=== PATIENT | female | born 1975 | race Caucasian/White ===

== ENCOUNTER 2018-02-03 19:56 | Inpatient (IN) | payer MEDICAID ==
[~2018-02-03] VITALS: Ht 167.6 cm; Wt 76.4 kg
[~2018-02-03 19:56] MED LIST: AMBIEN5 MG PO; CELEXA40 MG PO; CEPHALEXIN500 MG PO; CYCLOBENZAPRINE10 MG PO; FLOVENT HFA12 GM; NORCO 5-325 TA1 EACH PO; PERCOCET 5-3251 EACH PO; VENTOLIN HFA18 GM
--- NOTE | 2018-02-04 00:51 | NUR ---
RECIEVED PT FROM ED AT 2355. ABLE TO MOVE SELF FROM SRETCHER TO BED. DOES C/O BACK PAIN 01/23. NO NAUSEA AT THIS TIME. UP TO BEDSICE COMMODE TO VOID 500ML YELLOW URINE THAT HAD VERY SL BROWN TINGE. ABLE TO TOAKE PO POTASSIUM WELL. GIVEN 5MG OXYCODONE PO FOR BACK PAIN . ALSO HAS CONDE. LIGHTS ARE TURNED DOWN.
--- NOTE | 2018-02-04 02:00 | NUR ---
PT NOTED TO BE WIMPERING, FOUND SHIVERING, T 99.7. GIVEN 500MG TYLENOL PO. ALSO GIVEN 4MG MORPHINE IV FOR PAIN. GIVEN 1 WARM BLANKET TO HELP DECREASE SHIVERING.
--- NOTE | 2018-02-04 02:59 | NUR ---
IS NOW ASLEEP.
--- NOTE | 2018-02-04 03:59 | NUR ---
PT HAS BEE DOZING. NOTED HR UP TO 120'S. AWAKENED FOR VS AND TEMP 102.5. NO LONGER CHILLING. UP TO BSC TO VOID. STATES FEELS ACHY ALL OVER. DR GUTIERREZ CALLED RE TEMP. ORDERS RECIEVED.
--- NOTE | 2018-02-04 05:15 | NUR ---
CONT TO HAVE BACK PAIN. GIVEN 4MG ZOPHRAN TO PREVENT NAUSEA AND 4MG MORPHINE FOR PAIN. PT STATES SHE IS HUNGRY AND HAS LORI WATER WELL. GIVEN PUDDING.
--- NOTE | 2018-02-04 07:30 | NUR ---
REPORT RECIEVED. LABS DRAWN. PATIENT SPILLED WATER IN BED, OOB TO CHAIR TO CHANGE BED LINEN. C/O INCREASED PAIN IN BACK WITH MOVEMENT.
--- NOTE | 2018-02-04 07:51 | NUR ---
MED REC COMPLETE. NO HOME MEDS.
--- NOTE | 2018-02-04 08:00 | NUR ---
TO COMMODE TO VOID 700 ML URINE. THEN TO BED W/O INCIDENT.
--- NOTE | 2018-02-04 08:10 | NUR ---
MORPHINE 4 MG IV GIVEN FOR PAIN AND OXYCODONE 5 MG PO. ASSESSMENT DONE.
--- NOTE | 2018-02-04 08:20 | NUR ---
O2 AT 2 LITERS VIA NC APPLIED SAT 86. ENC DEEP BREATHING.
--- NOTE | 2018-02-04 09:30 | NUR ---
RESTFUL AT THIS TIME.
--- NOTE | 2018-02-04 10:10 | NUR ---
RESTFUL. NO DISTESS NOTED.
--- NOTE | 2018-02-04 12:00 | NUR ---
UP TO COMMODE TO VOID 250 ML CLEAR YELLOW URINE. IS CHILLING. TEMP-101.3. BACK TO BED ASSESSMENT DONE. HR-[address] GUTIERREZ AWARE OF FEVER.
--- NOTE | 2018-02-04 12:15 | NUR ---
TYLENOL 500 MG PO GIVEN. MORPHINE 4 MG IV GIVEN FOR PAIN IN BACK RATES 03/26.
--- NOTE | 2018-02-04 13:00 | NUR ---
RESTFUL AFTER MORPHINE GIVEN.
--- NOTE | 2018-02-04 15:15 | NUR ---
TAKING REGULAR DIET.
--- NOTE | 2018-02-04 15:30 | NUR ---
TOOK ONLY FEW BITES OF SALAD. SLIGHT NAUSEA.
--- NOTE | 2018-02-04 15:44 | NUR ---
DR. GUTIERREZ AWARE OF POSITIVE BLOOD CULTURES.
--- NOTE | 2018-02-04 16:18 | NUR ---
COUGHING, INC OF URINE. CHILLING.
--- NOTE | 2018-02-04 16:21 | NUR ---
chilling, TEMP-103.1. PAIN 9/10 TYLENOL 500 MG PO AND MORPHINE 4 MG IV GIVEN FOR FEVER AND LOWER BACK PAIN.
--- NOTE | 2018-02-04 16:50 | NUR ---
OOB TO COMMODE. BED LINEN CHANGED. SPONGE BATH GIVEN. VOIDED 700 ML OF CLEAR YELLOW URINE. BACK TO BED WITH MINIMAL ASSIST.
--- NOTE | 2018-02-04 17:10 | NUR ---
C/O NAUSEA. ZOFRAN 4 MG IV GIVEN. HAS BEEN TAKING IN LARGE AMOUNT OF WATER.
--- NOTE | 2018-02-04 20:01 | NUR ---
HAS STARTED CHILLING AGAIN. T 101.2 GIVEN 400MG IBUPROPHEN AND 4MG MORPHINE IV FOR FEVER AND CHILLS. UP TO BSC TO VOID LARGE AMTS URINE. TAKING LARGE AMTS WATER.
--- NOTE | 2018-02-04 21:45 | NUR ---
PT GIVEN 5MG OXYCODONE PO FOR 7-8/10 H/A AND BACK PAIN. ICE PACK TO FOREHEAD.
--- NOTE | 2018-02-04 23:02 | NUR ---
SLEEPING AT THIS TIME.
--- NOTE | 2018-02-05 00:49 | NUR ---
IS AFEBRILE AT THIS TIME. DID SLEEP SOME AND FEELS A LITTLE BETTER. UP TO BSC TO VOID. LINEN CHANGED WAS SO DIAPHORETIC. HAD LORI EATING CHICKED SOUP EARLIER AND NOW ASKING FOR SHERBET AND THEN PUDDING WHEN LORI THE SHERBET WELL. STATES CONDE IS GONE, CONT TO HAVE BACK PAIN 01/23 AND GIVEN 500MG TYLENOL PO. HR 90'S.
--- NOTE | 2018-02-05 01:33 | NUR ---
ASLEEP AT THIS TIME.
--- NOTE | 2018-02-05 03:05 | NUR ---
CONT TO REST.
--- NOTE | 2018-02-05 04:23 | NUR ---
PT AWAKE, STATES NEEDING TO VOID AND STATES SHE FEELS LIKE SHE IS STARTING TO CHILL. UP TO BSC TO VOID 1100ML. BACK PAIN HAS IN TO 8-03/26, T 99.7. PT GIVEN 4MG MORPHINE IV AND 400MG IBUPROPHEN PO FOR PAIN AND FEVER. SATS STARTING TO DEC TO 90 WITH IN 5 MIN OF BEING GIVEN THE MORPHINE AND PT STARTING TO BE DROWSY, 02 1LNC PLACED.
--- NOTE | 2018-02-05 05:00 | NUR ---
SLEEPING. H 9-.
--- NOTE | 2018-02-05 06:26 | NUR ---
IV LAC OCCLUDING EVERY TIME PT BENDS ARM, DC'S, RESTARTED L WRIST. GIVEN ICE TEA PE REQUEST.
--- NOTE | 2018-02-05 06:37 | NUR ---
UP TO VOID AND LORI WELL. NO OTHER CHANGES.
--- NOTE | 2018-02-05 07:30 | NUR ---
REPORT RECIEVED. PATIENT IS SITTING UP EATING BREAKFAST.
--- NOTE | 2018-02-05 08:00 | NUR ---
C/O PAIN IN BACK AND UPPER RIB CAGE. MORPHINE 4 MG IV GIVEN FOR PAIN . ASSESSMENT DONE.
--- NOTE | 2018-02-05 08:15 | NUR ---
PT SLEEPING. WILL RETURN LATER.
--- NOTE | 2018-02-05 09:06 | NUR ---
C/O HEARTBURN. REQUESTING MILK.
--- NOTE | 2018-02-05 09:30 | NUR ---
MAALOX GIVEN FOR C/O HEARTBURN.
--- NOTE | 2018-02-05 09:45 | NUR ---
C/O NAUSEA AND CHILLING, ZOFRAN 4 MG IV GIVEN. WILL MONITOR TEMP. TEMP AT THIS TIME 98.4. WILL CONTINUE TO MONITOR TEMP.
--- NOTE | 2018-02-05 09:55 | NUR ---
C/O ABD PAIN AND BACK PAIN, OXYCODONE 5 MG PO GIVEN.
--- NOTE | 2018-02-05 10:00 | NUR ---
DR. GUTIERREZ HERE TO SEE PATIENT, ORDERS RECIEVED. IVF DECREASED TO 50 ML/HR.
--- NOTE | 2018-02-05 10:04 | NUR ---
PATIENT IS SELF PAY. CALLED [facility] [employer] H[employer] PLUNGER OPERATOR. SHE WILL COME SEE PATIENT REGARDING APPLYING FOR INSURANCE COVERAGE.
--- NOTE | 2018-02-05 10:35 | NUR ---
DUCCOLOX SUPP GIVEN PER ORDERS.
--- NOTE | 2018-02-05 11:30 | NUR ---
sleeping. no distress noted.
--- NOTE | 2018-02-05 12:29 | NUR ---
AWAKE. AMBULATED TO BR TO VOID 1000 ML CLEAR YELLOW URINE, VERY SMALL BM. C/O ABD DISTENTION. STATES STOMACH DOESN'T FEEL ANY BETTER. C/O HEARTBURN, HAS HICCUPS. REQUESTIMG HEARTBURN MEDICATION. BACK PAIN 8.5.
--- NOTE | 2018-02-05 13:10 | NUR ---
PT RESTING ON RIGHT SIDE IN BED. SHE WELCOMED ME IN AND MENTIONED HER PAIN WAS AT 9. GOOD, SHORT VISIT. PT REQUESTED PRAYER, AND I UPDATED RACHEL DAVE ON PT'S PAIN. WILL FOLLOW NEEDED
--- NOTE | 2018-02-05 13:15 | NUR ---
DR. GUTIERREZ AWARE OF PAIN, HEARTBURN. ORDERS RECIEVED .
--- NOTE | 2018-02-05 13:20 | NUR ---
TOOK LUNCH FAIR, GI COCKTAIL GIVEN. VISITING WITH FAMILY MEMBER. IVF INFUSING AT 50 ML/HR.
--- NOTE | 2018-02-05 14:00 | NUR ---
STATES FEELS ALITTLE BETTER AFTER TAKING GI COCKTAIL.
--- NOTE | 2018-02-05 14:35 | NUR ---
OXYCODONE 5 MG PO GIVEN FOR PAIN IN IN BACK AND ABD.
--- NOTE | 2018-02-05 14:44 | NUR ---
will be transferred TO MEDICAL FLOOR TODAY.
--- NOTE | 2018-02-05 15:30 | NUR ---
AMBULATED TO SHOWER.
--- NOTE | 2018-02-05 15:45 | NUR ---
TOLERATED SHOWER WELL. BACK TO BED W/O INCIDENT.
--- NOTE | 2018-02-05 16:00 | NUR ---
REPORT TO Felix CURRAN RN
--- NOTE | 2018-02-05 16:25 | NUR ---
TO MED-SURG VIA BED.
--- NOTE | 2018-02-05 16:25 | NUR ---
SPOKE WITH PATIENT IN ROOM. PATIENT LIVES WITH HER FOUR OLDER KIDS AGES 16-23. SHE STATES SHE LOST HER INSURANCE, BUT THAT SHE SPOKE WITH [facility] BACK HANGER AND SHE IS HELPING HER WITH THIS. SHE STATES SHE CAN GET A PCP WHEN THAT IS DONE. PATIENT DENIES ANY BARRIERS TO GOING HOME. NONE SEEN AT THIS TIME.
--- NOTE | 2018-02-05 16:53 | NUR ---
RECIEVED BEDSIDE REPORT FROM NOVA Eller R.N. PT ARRIVED TO UNIT VIA CHAIR. ALERT AND ORIENTED. PT REPORTING 8/10 HEADACHE AND FLANK\\ABD PAIN. PT REPORTS "I WOULD FEEL BETTER IF I HAD A GOOD BOWEL MOVMENT." MIRALAX AND SENNA ORDERED AND ADMINISTERED AT THIS TIME. SHADES DRAWN AND TYLENOL ADMINISTERED TO HELP WITH HEADACHE. IV INFUSING WNL. PT DRINKING LARGE AMOUNTS OF WATER. DENIES NAUSEA. CALL LIGHT WITHIN REACH.
--- NOTE | 2018-02-05 19:05 | NUR ---
PT RESTING IN BED, STATES HER PAIN IS TOLERABLE AND PO PAIN MEDICATION WAS RECENTLY ADMINISTERD. CALL LIGHT AND ICE WATER IN REACH.
--- NOTE | 2018-02-05 21:39 | NUR ---
PT RESTING IN BED, REPORTS 5/10 HEADACHE, PER ROXANN TAN PT ALSO HAS TEMP OF 100.0 SO PRN TYLENOL ADMINISTERED AT THIS TIME. PT DENIES SOB OR NAUSEA. CALL LIGHT IN REACH AND NO FURTHER CONCERNS OR REQUESTS VOICED.
--- NOTE | 2018-02-05 21:55 | NUR ---
RACHEL BUENROSTRO NOTIFIED RE TEMP.
--- NOTE | 2018-02-05 23:50 | NUR ---
PT REPORTS CHILLS AND PAIN OF 9/10 TO BILAT FLANKS WITH BURNING DURING URINATION. PT ALSO REPORTS HEADACHE THOUGH HEADACHE PAIN IS NOT SEVERE. PT DENIES NAUSEA/VOMITING, SOB OR ANY OTHER SYMPTOMS. TEMPORAL TEMP IS 103.5, PT STATES SHE JUST DRANK ICE WATER SO ORAL TEMP OF 99.1 IS NOT ACURATE. PT MEDICATED WITH PRN IBUPROFEN AND PRN OXYCODONE. DR. GUTIERREZ CONSULTED, NEW ORDER RECEIVED FOR BLOOD CULTURES X2 WITH NO LACTIC ACID.
--- NOTE | 2018-02-06 01:17 | NUR ---
PATIENT TOOK SHOWER. BED LINEN CHANGED.
--- NOTE | 2018-02-06 04:48 | NUR ---
PT RESTING IN BED, ALERT TO VOICE, DENIES PAIN,NAUSEA,SOB FEVER/CHILLS "NO, I'M FEELING BETTER" FLUIDS COMPLETED AT THIS TIME SO NEW BAG OF MAINTENANCE FLUIDS TO BE HUNG. CALL LIGHT IN REACH NO NEEDS VOICED.
--- NOTE | 2018-02-06 06:52 | NUR ---
pt had fever of 103.5 at 2352 with flank pain of 9/10 and dysuria. Per PO, blood cultures x2 were drawn with results pending. temp down to 98.4 at 0137, pt showered and denies pain, chills,sob or any other symptoms. pt slept majority of night with pain controlled with po oxycodone. maintenance fluids have continued to run and pt continues iv abx.
--- NOTE | 2018-02-06 08:30 | NUR ---
PT AFEBRILE THIS AM, PT IS "FREEZING", GAVE PT WARM BLANKETS AND INCREASED TEMP IN ROOM. PT IS ANXIOUS, DENIES SOB, TACHYPNEIA. PT HAS MINIMAL DISTRESS, GENERAL ACHINESS. ASSURED PT THAT SHE WAS NOT FEBRILE. WILL CONTINUE TO MONITOR.
--- NOTE | 2018-02-06 12:50 | NUR ---
PT IN BED, USING THE PHONE. PT HAS NO DISTRESS, PT IS NOT SHIVERING. NO CHANGE IN CONDITION. AFEBRILE THIS SHIFT. WILL CONTINUE TO MONITOR.
--- NOTE | 2018-02-06 14:57 | NUR ---
PT RESTING IN BED, NO DISTRESS. PT STATES THAT SHE FEELS BETTER, NO SHIVERING NOTED. PT HAS SOME INTERMITTENT FLANK PAIN, URINATION IS DIFFICULT AND PAIN IS NOTED AT THE BEGINNING, BUT STOPS WITH CONTINUED URINATION. GOOD OUTPUT. PT REQUESTED AN ADDITIONAL LOSENGE FOR THROAT DISCOMFORT. WILL CONTINUE TO MONITOR.
--- NOTE | 2018-02-06 18:12 | NUR ---
PT HAS BEEN IMPROVING TODAY, AND HAS REMAINED AFEBRILE FOR THE MAJORITY OF THE SHIFT. PT HAD SOME ANIXETY THIS AM, WHICH IS RESOLVING. PT IS PLEASANT, VOIDING WELL, DENIES SOB. PT IS NO LONGER FEELING CHILLED, AND TOLERATING FOOD WELL. LOWER LEFT FLANK PAIN IS REPORTED THROUGHOUT SHIFT, AND PT HAS HAD PRN PAIN MANAGEMENT. PT GENERAL ACHINESS IS RESOLVING.
--- NOTE | 2018-02-06 19:00 | NUR ---
Report received from RACHEL Lopez. Pt resting supine in bed call light in reach no needs voiced at this time.
--- NOTE | 2018-02-06 20:12 | NUR ---
PATIENT CAME TO THE NURSE'S STATION WITH FAMILY SENDING OUT, PATIENT HANDED HER BLIZZARD TO BE PUT TO FREEZER. PUT NAME ON IT.
--- NOTE | 2018-02-06 20:45 | NUR ---
ROUNDED CHARGE. RELOCATION SPECIALIST IN THE ROOM. PATIENT IS RESTING IN BED. PATIENT DENIES ANY COMMENTS, QUESTIONS, OR CONCERNS.
--- NOTE | 2018-02-06 23:17 | NUR ---
CHANGED BED LINEN. CHANGED GOWN.
--- NOTE | 2018-02-07 | NUR ---
PT SITTING UP IN BED TEXTING ON CELL PHONE. PT APPEARS TO BE IN NO DISTRESS. PT REPORTED HAVING NO LARGE BM IN PAST 7 DAYS. PT DOES REPORT MULTIPLE VERY SMALL FORMED BM'S TODAY BUT STILL FEELS CONTSTIPATED AND BT'S ACTIVE. PT DENIES NASUEA OR VOMITING. PT WAS UP AMBULATING IN HALLS DOING MULTIPLE LAPS IN RAY WITH STEADY GAIT. NIO MAG CITRATE TO BE ORDERED FOR CONSTIPATION.
--- NOTE | 2018-02-07 01:00 | NUR ---
PT BACK TO ROOM FROM AMBULATING IN HALLS STATES "I DID 5 LAPS AROUND THE HALLS". PT STATES SHE IS STILL UNABLE TO HAVE A BM SO MAG CITRATE ADMINISTERED PER NIO. "I SURE HOPE THIS WORKS BECAUSE I FEEL CONSTIPATED". CALL LIGHT IN REACH NO FURTHER CONCERNS OR REQUESTS VOICED.
--- NOTE | 2018-02-07 05:02 | NUR ---
Pt resting supine in bed RR18, call light and ice water in reach. pt appears to be sleeping comfortably.
--- NOTE | 2018-02-07 05:31 | NUR ---
PT UP AMBULATING HALLS EARLY IN SHIFT TOLORATING 5 LAPPS AROUND RAY. PT REPORTED SOME CONSTIPATION FOR PAST 7 DAYS, WITH ONLY SOME SMALL FORMED BM'S SINCE ADMISSION SO NIO MAG CITRATE ORDERED FOR CONSTIPATION. NO BM OF YET POST ADMINISTRATION. PT SLEPT WELL WITH PAIN WELL CONTROLLED WITH PRN PERCOCET. PT AMBULATES INDEPENDENTLY WITH STEADY GAIT. NO REPORTS OF NAUSEA. BT'S ACTIVE. PT DID HAVE FEVER OF 100.1 THAT WAS REDUCED TO 99.1 WITH 500MG PO TYLONOL. 20 GA IV PATENT TO LEFT WRIST.
--- NOTE | 2018-02-07 09:11 | NUR ---
PT COMPLAINING OF ABDOMINAL CRAMPING THIS MORNING, ONE SMALL BM NOTED. PT REQUESTED PRN PAIN MANAGEMENT, GAVE OXYCODONE PER ORDERS, FOR L FLANK PAIN. NO DISTRESS, AFEBRILE. PT HAS CHRONIC MIGRAINES, ROOM LEFT DARK AT PT REQUEST. GAVE WARM PRUNE JUICE FOR DISCOMFORT.
[2018-02-07] MEDS ORDERED: NICOTINE PATCH1 EAC1 TD (09:59)
[2018-02-07] MEDS ORDERED: CEPHALEXIN500 MG PO (09:59)
[2018-02-07] MEDS ORDERED: OXYCODONE HCL5 MG PO (10:00)
== END 2018-02-07 12:05 | disposition home or self-care (01) | DRG 872 ==
LOC: ED 19:56 → CCU 23:10 → MS 02-05 16:25
PROVIDERS: ADMIT Internal Medicine
DX: A41.51 Sepsis due to Escherichia coli [E. coli] (principal); N10 Acute pyelonephritis; N92.0 Excessive and frequent menstruation with regular cycle; D50.9 Iron deficiency anemia, unspecified; K59.00 Constipation, unspecified
CPT/HCPCS: 36415; 74176; 80048; 80053; 81001; 82607; 82728; 82746; 83540; 83605; 83735; 84466; 84703; 85025; 85045; 87040; 87077; 87088; 87186; 96361; 96374; 96375; 99285; 99406; J0696; J1650; J1885; J2270; J2405; J2550; J3475; J7030; J7120

== ENCOUNTER 2018-09-03 10:59 | Emergency (ER) | payer MEDICAID ==
[~2018-09-03] VITALS: Ht 167.6 cm; Wt 68.0 kg
[~2018-09-03 10:59] MED LIST changes: +CEFUROXIME500 MG PO; +NICOTINE PATCH1 EAC1 TD; +OXYCODONE HCL5 MG PO; +TYLENOL WITH C1 EACH PO; +ZOFRAN4 MG PO
[2018-09-03] MEDS ORDERED: ONDANSETRON ODT8 MG PO (12:00)
== END 2018-09-03 12:22 | disposition home or self-care (01) ==
LOC: ED 10:59
DX: S06.0X0A Concussion without loss of consciousness, initial encounter (principal); W10.9XXA Fall (on) (from) unspecified stairs and steps, initial encounter; F17.200 Nicotine dependence, unspecified, uncomplicated; Z88.8 Allergy status to other drugs, medicaments and biological substances; Z88.5 Allergy status to narcotic agent
CPT/HCPCS: 99283

== ENCOUNTER 2019-05-16 12:29 | Emergency (ER) | payer OTHER ==
[~2019-05-16] VITALS: Ht 167.6 cm; Wt 68.0 kg
[~2019-05-16 12:29] MED LIST changes: +ONDANSETRON ODT8 MG PO
[2019-05-16] MEDS ORDERED: ONDANSETRON ODT8 MG PO (14:08)
== END 2019-05-16 14:20 | disposition home or self-care (01) ==
LOC: ED 12:29
DX: K52.9 Noninfective gastroenteritis and colitis, unspecified (principal); F17.200 Nicotine dependence, unspecified, uncomplicated; Z88.5 Allergy status to narcotic agent; Z88.8 Allergy status to other drugs, medicaments and biological substances
CPT/HCPCS: 80053; 81001; 83690; 84703; 85025; 96361; 96374; 96376; 99284-25; J2405; J7030

== ENCOUNTER 2020-03-09 16:18 | Emergency (ER) | payer OTHER ==
[~2020-03-09] VITALS: Ht 167.6 cm; Wt 68.0 kg
--- OUTSIDE RECORDS SUMMARY | 2020-03-09 16:22 | XMS ---
PreManage Notification: CHUNG HUIZAR Security Pressure Tester Events No recent Security Events currently on file CRITERIA MET - History of Sepsis Dx CARE PROVIDERS There are no care providers on record at this time. Eric has no Care Guidelines for this patient. [place] VISIT COUNT (12 MO.) 2 [facility] [place] TOTAL 2 NOTE: Visits indicate total known visits. ED/UCC VISIT TRACKING (12 MO.) 03/09/2020 16:19 [facility] [place] TYPE: Emergency COMPLAINT: - BLOOD IN URINE 05/16/2019 12:29 [facility] [place] TYPE: Emergency COMPLAINT: - POSSIBLE KIDNEY INFECTION DIAGNOSES: - Allergy status to other drugs, medicaments and biological sub - Diarrhea, unspecified - Nicotine dependence, unspecified, uncomplicated - Noninfective gastroenteritis and colitis, unspecified - Allergy status to narcotic agent status INPATIENT VISIT TRACKING (12 MO.) No inpatient visits to display in this time frame [email or web address]
== END 2020-03-09 16:51 | disposition home or self-care (01) ==
LOC: ED 16:18
DX: R30.0 Dysuria (principal); R35.0 Frequency of micturition

== ENCOUNTER 2021-01-05 10:06 | Emergency (ER) | payer OTHER ==
[~2021-01-05] VITALS: Ht 167.6 cm; Wt 63.5 kg
[2021-01-05] MEDS ORDERED: CEPHALEXIN500 M1 PO (12:44)
== END 2021-01-05 13:09 | disposition home or self-care (01) ==
LOC: ED 10:06
DX: N39.0 Urinary tract infection, site not specified (principal); J45.909 Unspecified asthma, uncomplicated; F17.200 Nicotine dependence, unspecified, uncomplicated; Z88.8 Allergy status to other drugs, medicaments and biological substances; Z88.5 Allergy status to narcotic agent
CPT/HCPCS: 81001; 87077; 87088; 87186; 99284

== ENCOUNTER 2025-03-23 16:41 | Emergency (ER) | payer OTHER ==
[~2025-03-23] VITALS: Ht 167.6 cm; Wt 64.3 kg
[~2025-03-23 16:41] MED LIST changes: +CEPHALEXIN500 M1 PO; +DOXYCYCLINE HY100 MG PO; +METRONIDAZOLE500 MG PO
[2025-03-23] MEDS ORDERED: METHYLPREDNISOLO4 M1 (16:59)
[2025-03-23] MEDS ORDERED: OMEPRAZOLE20 MG (16:59)
[2025-03-23] MEDS ORDERED: LEXAPRO20 MG (16:59)
[2025-03-23] MEDS ORDERED: HYDROXYZINE HCL25 MG (16:59)
[2025-03-23 17:16] LABS: BASOPHILS 0.8 % (0.1-1.2); EOSINOPHILS 3.1 % (0.7-5.8); LYMPHOCYTES 35.6 % (19.3-51.7); MCH 23.0 PG (25.6-32.2); MCHC 29.6 g/dL (32.2-35.5); MCV 77.8 fL (79.4-94.8); MONOCYTES 9.3 % (4.7-12.5); NEUTROPHILS 51.1 % (34.0-71.1); RBC 4.82 M/uL (3.93-5.22)
[2025-03-23 17:26] LABS: ALT (SGPT) 42.0 U/L (14-59); AST (SGOT) 29.0 U/L (15-37); GLOMERULAR FILTRATION RATE,EST 94.0 mL/min (>60); PROTEIN, TOTAL 7.0 g/dL (6.4-8.2); UREA NITROGEN 13.0 mg/dL (7-18)
[2025-03-23 17:27] LABS: BLOOD/HGB, URINE NEGATIVE (Negative); KETONE, URINE NEGATIVE (Negative); LEUK ESTERASE, URINE TRACE (negative); NITRITE, URINE POSITIVE (negative)
[2025-03-23 17:32] LABS: BACTERIA, URINE 4+ /hpf (negative); CASTS, URINE NONE SEEN \\lpf; CRYSTALS, URINE NONE SEEN (0-1+); EPITHELIAL CELLS, URINE SQUAMOUS 1+ /lpf (0-1+); REFLEX CULTURE, URINE Yes (No)
[2025-03-23] MEDS ORDERED: CEPHALEXIN MONOHYDRATE 500 MG CAP PO ONE (17:45)
[2025-03-23 17:47] VITALS: BP 137/96
[2025-03-23] MEDS ORDERED: CEPHALEXIN500 MG PO (17:49)
== END 2025-03-23 17:54 | disposition home or self-care (01) ==
LOC: ED 16:41
PROVIDERS: Emergency Medicine
DX: K62.5 Hemorrhage of anus and rectum (principal); F17.200 Nicotine dependence, unspecified, uncomplicated; Z79.899 Other long term (current) drug therapy; Z88.6 Allergy status to analgesic agent; Z88.5 Allergy status to narcotic agent
CPT/HCPCS: 36415; 80053; 81001; 85025; 87077; 87088; 87186; 99283; A9270

== ENCOUNTER 2025-05-07 23:50 | Observation (INO) | payer OTHER ==
[~2025-05-07] VITALS: Ht 167.6 cm; Wt 59.9 kg
--- OUTSIDE RECORDS SUMMARY | ~2025-05-07 | XMS | Continuity of Care Document ---
Demographics + + + | Address | [address] | | | [place] [address] | + + + | Preferred Language | Unknown | + + + | Marital Status | | + + + | Nondenominational Affiliation | Unknown | + + + | Race | White | + + + | Ethnic Group | Not or | + + + Author + + + | Author | [place] | + + + | Organization | [facility] | + + + | Address | [address] | | | [place] [address] | + + + | Phone | | + + + Care Team Providers + + + + | Care Business Database Analyst Name | Role | Phone | + + + + Unavailable | Unavailable | + + + + Unavailable | Unavailable | + + + + Allergies No information. Encounters No information. Functional Status No information. Immunizations No information. Medications + + + + | date | description | facility | + + + + | (no date) | OMEPRAZOLE | [facility] | | | | [facility] | + + + + | (no date) | CEPHALEXIN | [facility] | | | | [facility] | + + + + | 2025-03-23 00:00 | CEPHALEXIN | [facility] | | | | [facility] | + + + + | (no date) | ESCITALOPRAM OXALATE | [facility] | | | | [facility] | + + + + | (no date) | METHYLPREDNISOLONE | [facility] | | | | [facility] | + + + + | (no date) | hydrOXYzine HCL | [facility] | | | | [facility] | + + + + Problems + + + + | date | description | facility | + + + + | 2025-03-23 00:00 | Rectal hemorrhage | [facility] | | | | [facility] | + + + + Procedures No information. Results/Labs +--------+--------+ +---------+--------+---------+ | test | date | facility | value | unit | notes | +--------+--------+ +---------+--------+---------+ + + | Result panel 1 | + + + + + +--------+ + + | WBC # Bld | 2025-03-23 | | 7.42 | (missing) | (missing) | | Auto | 17:00:07 | [facility] | | | | + + + +--------+ + + + + | Result panel 2 | + + + + + +--------+ + + | Lymphocytes | 2025-03-23 | | 35.6 | (missing) | (missing) | | NFr Bld | 17:00:07 | [facility] | | | | | Auto | [facility] | | | | + + + +--------+ + + + + | Result panel 3 | + + + + + +-------+ + + | Monocytes | 2025-03-23 | | 9.3 | (missing) | (missing) | | NFr Bld Auto | 17:00:07 | [facility] | | | | + + + +-------+ + + + + | Result panel 4 | + + + + + +-------+ + + | Eosinophil | 2025-03-23 | | 3.1 | (missing) | (missing) | | NFr Bld Auto | 17:00:07 | [facility] | | | | + + + +-------+ + + + + | Result panel 5 | + + + + + +-------+ + + | Basophils | 2025-03-23 | | 0.8 | (missing) | (missing) | | NFr Bld Auto | 17:00:07 | [facility] | | | | + + + +-------+ + + + + | Result panel 6 | + + + + + +--------+ + + | RBC # Bld | 2025-03-23 | | 4.82 | (missing) | (missing) | | Auto | 17:00:07 | [facility] | | | | + + + +--------+ + + + + | Result panel 7 | + + + + + +--------+ + + | Hgb | 2025-03-23 | | 11.1 | (missing) | (missing) | | Bld-mCnc | 17:00:07 | [facility] | | | | + + + +--------+ + + + + | Result panel 8 | + + + + + +-------+---------+ + | Glucose | 2025-03-23 | | 109 | mg/dL | (missing) | | SerPl-mCnc | 17:00:07 | [facility] | | | | + + + +-------+---------+ + + + | Result panel 9 | + + + + + +------+---------+ + | BUN | 2025-03-23 | | 13 | mg/dL | (missing) | | SerPl-mCnc | 17:00:07 | [facility] | | | | + + + +------+---------+ + + + | Result panel 10 | + + + + + +--------+---------+ + | Creat | 2025-03-23 | | 0.78 | mg/dL | (missing) | | SerPl-mCnc | 17:00:07 | [facility] | | | | + + + +--------+---------+ + + + | Result panel 11 | + + + + + +------+ + + | eGFRcr | 2025-03-23 | | 94 | (missing) | (missing) | | SerPlBld | 17:00:07 | [facility] | | | | | CKD-EPI 2020 | [facility] | | | | + + + +------+ + + + + | Result panel 12 | + + + + + +---------+ + + | BUN/Creat | 2025-03-23 | | 16.66 | (missing) | (missing) | | SerPl | 17:00:07 | [facility] | | | | + + + +---------+ + + + + | Result panel 13 | + + + + + +-------+ + + | Sodium | 2025-03-23 | | 139 | (missing) | (missing) | | SerPl-sCnc | 17:: | [facility] | | [facility] | | | | + + + +-------+ + + + + | Result panel 14 | + + + + + +--------+ + + | Hct VFr.DF | 2025-03-23 | | 37.5 | (missing) | (missing) | | Bld Auto | 17:: | [facility] | | | | + + + +--------+ + + + + | Result panel 15 | + + + + + +-------+ + + | Potassium | 2025-03-23 | | 4.0 | (missing) | (missing) | | SerPl-sCnc | 17:00:07 | [facility] | | | | + + + +-------+ + + + + | Result panel 16 | + + + + + +-------+ + + | Chloride | 2025-03-23 | | 104 | (missing) | (missing) | | SerPl-sCnc | 17:00:07 | [facility] | | | | + + + +-------+ + + + + | Result panel 17 | + + + + + +------+ + + | CO2 | 2025-03-23 | | 28 | (missing) | (missing) | | SerPl-sCnc | 17::07 | [facility] | | | | + + + +------+ + + + + | Result panel 18 | + + + + + +--------+ + + | Anion Gap | 2025-03-23 | | 11.0 | (missing) | (missing) | | SerPl | 17:00:07 | [facility] | | | | | Calculated.4 | [facility] Ions-sCnc | [facility] | | | | + + + +--------+ + + + + | Result panel 19 | + + + + + +-------+---------+ + | Calcium | 2025-03-23 | | 9.2 | mg/dL | (missing) | | Angelica-Jacques | 17:00:07 | [facility] | | | | + + + +-------+---------+ + + + | Result panel 20 | + + + + + +-------+ + + | Prot | 2025-03-23 | | 7.0 | (missing) | (missing) | | SerPl-mCnc | 17:00:07 | [facility] | | | | + + + +-------+ + + + + | Result panel 21 | + + + + + +-------+ + + | Albumin | 2025-03-23 | | 3.4 | (missing) | (missing) | | SerPl-mCnc | 17:00:07 | [facility] | | | | + + + +-------+ + + + + | Result panel 22 | + + + + + +-------+ + + | Globulin | 2025-03-23 | | 3.6 | (missing) | (missing) | | Ser-mCnc | 17:00:07 | [facility] | | | | + + + +-------+ + + + + | Result panel 23 | + + + + + +--------+ + + | | 2025-03-23 | | 0.94 | (missing) | (missing) | | Albumin/Glob | 17:00:07 | [facility] | | | | | SerPl | [facility] | | | | + + + +--------+ + + + + | Result panel 24 | + + + + + +-------+---------+ + | Bilirub | 2025-03-23 | | 0.4 | mg/dL | (missing) | | SerPl-mCnc | 17:00:07 | [facility] | | | | + + + +-------+---------+ + + + | Result panel 25 | + + + + + +--------+ + + | RBC Auto | 2025-03-23 | | 77.8 | (missing) | (missing) | | | 17:00:07 | [facility] | | | | + + + +--------+ + + + + | Result panel 26 | + + + + + +------+ + + | AST | 2025-03-23 | | 29 | (missing) | (missing) | | SerPl-cCnc | 17:00:07 | [facility] | | | | + + + +------+ + + + + | Result panel 27 | + + + + + +------+ + + | ALT | 2025-03-23 | | 42 | (missing) | (missing) | | SerPl-cCnc | 17:00:07 | [facility] | | | | + + + +------+ + + + + | Result panel 28 | + + + + + +-------+ + + | ALP | 2025-03-23 | | 127 | (missing) | (missing) | | [facility] | 17:00:07 | [facility] | | | | + + + +-------+ + + + + | Result panel 29 | + + + + + +--------+ + + | MCH RBC Qn | 2025-03-23 | | 23.0 | (missing) | (missing) | | Auto | 17:00:07 | [facility] | | | | + + + +--------+ + + + + | Result panel 30 | + + + + + +--------+ + + | MCHC RBC | 2025-03-23 | | 29.6 | (missing) | (missing) | | Auto-EntMCnc | 17:00:07 | [facility] | | | | + + + +--------+ + + + + | Result panel 31 | + + + + + +-------+ + + | Platelet # | 2025-03-23 | | 278 | (missing) | (missing) | | Bld Auto | 17:00:07 | [facility] | | | | + + + +-------+ + + + + | Result panel 32 | + + + + + +--------+ + + | Neutrophils | 2025-03-23 | | 51.1 | (missing) | (missing) | | NFr Bld | 17:00:07 | [facility] | | | | | Auto | [facility] | | | | + + + +--------+ + + + + | Result panel 33 | + + + + + + + + + | Color Ur | 2025-03-23 | | YELLOW | (missing) | (missing) | | Auto | 17:20:07 | [facility] | | | | + + + + + + + + + | Result panel 34 | + + + + + +---------+ + + | Character | 2025-03-23 | | CLEAR | (missing) | (missing) | | Ur | 17:20:07 | [facility] | | | | + + + +---------+ + + + + | Result panel 35 | + + + + + + + + + | Glucose Ur | 2025-03-23 | | NEGATIVE | (missing) | (missing) | | Ql Strip | 17:20:07 | [facility] | | | | + + + + + + + + + | Result panel 36 | + + + + + + + + + | Bilivonneub Ur | 2025-03-23 | | NEGATIVE | (missing) | (missing) | | Ql Strip | 17:20:07 | [facility] | | | | + + + + + + + + + | Result panel 37 | + + + + + + + + + | Ketoneamara Ur | 2025-03-23 | | NEGATIVE | (missing) | (missing) | | Ql Strip | 17:20:07 | [facility] | | | | + + + + + + + + + | Result panel 38 | + + + + + +---------+ + + | Sp Gr Ur | 2025-03-23 | | 1.010 | (missing) | (missing) | | Strip | 17:20:07 | [facility] | | | | + + + +---------+ + + + + | Result panel 39 | + + + + + + + + + | Hgb Ur Ql | 2025-03-23 | | NEGATIVE | (missing) | (missing) | | Strip | 17:20:07 | [facility] | | | | + + + + + + + + + | Result panel 40 | + + + + + +-------+ + + | pH Ur Strip | 2025-03-23 | | 6.0 | (missing) | (missing) | | | 17:20:07 | [facility] | | | | + + + +-------+ + + + + | Result panel 41 | + + + + + + + + + | Prot Ur | 2025-03-23 | | NEGATIVE | (missing) | (missing) | | Strip-mCnc | 17:20:07 | [facility] | | | | + + + + + + + + + | Result panel 42 | + + + + + +-------+ + + | | 2025-03-23 | | 1.0 | (missing) | (missing) | | Urobilinogen | 17:20:07 | [facility] | | | | | Ur | [facility] Strip-mCnc | [facility] | | | | + + + +-------+ + + + + | Result panel 43 | + + + + + + + + + | Nitrite Ur | 2025-03-23 | | POSITIVE | (missing) | (missing) | | Ql Strip | 17:20:07 | [facility] | | | | + + + + + + + + + | Result panel 44 | + + + + + +---------+ + + | Leukocyte | 2025-03-23 | | TRACE | (missing) | (missing) | | esterase Ur | 17:20:07 | [facility] | | | | | Ql Strip | [facility] | | | | + + + +---------+ + + + + | Result panel 45 | + + + + + +-------+ + + | RBC #/area | 2025-03-23 | | 0-1 | (missing) | (missing) | | UrnS HPF | 17:20:07 | [facility] | | | | + + + +-------+ + + + + | Result panel 46 | + + + + + +---------+ + + | WBC #/area | 2025-03-23 | | 12-20 | (missing) | (missing) | | UrnS HPF | 17:20:07 | [facility] | | | | + + + +---------+ + + + + | Result panel 47 | + + + + + + + + + | Epi Cells | 2025-03-23 | | SQUAMOUS 1+ | (missing) | (missing) | | #/area UrnS | 17:20:07 | [facility] | | | | | HPF | [facility] | | | | + + + + + + + + + | Result panel 48 | + + + + + + + + + | Crystals | 2025-03-23 | | NONE SEEN | (missing) | (missing) | | UrnS Micro | 17:20:07 | [facility] | [facility] | | | | + + + + + + + + + | Result panel 49 | + + + + + +------+ + + | Bacteria | 2025-03-23 | | 4+ | (missing) | (missing) | | #/area UrnS | 17:20:07 | [facility] | | | | | HPF | [facility] | | | | + + + +------+ + + + + | Result panel 50 | + + + + + + + + + | Casts | 2025-03-23 | | NONE SEEN | (missing) | (missing) | | #/area UrnS | 17:20:07 | [facility] | | | | | LPF | [facility] | | | | + + + + + + + + + | Result panel 51 | + + + + + +-------+ + + | Bacteria Ur | 2025-03-23 | | Yes | (missing) | (missing) | | Cult | 17:20:07 | [facility] | [facility] | | | | + + + +-------+ + + + + | Result panel 52 | + + + + + + + + + | Urn Spec | 2025-03-23 | | CLEAN CATCH | (missing) | (missing) | | Collect Meth | 17:20:07 | [facility] | | | | | Ur | [facility] | | | | + + + + + + + Social History +--------+ + + | date | description | facility | +--------+ + + Vital Signs + + + +---------+ | date | measurement | value | units | + + + +---------+ | 2025-03-23 00:00 | BMI | 22.9 | kg/m2 | + + + +---------+ | 2025-03-23 00:00 | BP_diastolic | 96 | mmHg | + + + +---------+ | 2025-03-23 00:00 | BP_systolic | 137 | mmHg | + + + +---------+ | 2025-03-23 00:00 | heart_rate | 84 | /min | + + + +---------+ | 2025-03-23 00:00 | height_metric | 167.64 | cm | + + + +---------+ | 2025-03-23 00:00 | height_standard | 66 | in | + + + +---------+ | 2025-03-23 00:00 | o2_saturation | 99 | % | + + + +---------+ | 2025-03-23 00:00 | respiration_rate | 16 | /min | + + + +---------+ | 2025-03-23 00:00 | | 98.5 | F | | | temperature_standar | | | | | d | | | + + + +---------+ | 2025-03-23 00:00 | weight_metric | 64.3 | kg | + + + +---------+ | 2025-03-23 00:00 | weight_standard | 141.756 | lb | + + + +---------+"
--- OUTSIDE RECORDS SUMMARY | ~2025-05-07 | XMS | Continuity of Care Document ---
Demographics + + + | Address | [address] | | | [place] [address] | + + + | Preferred Language | Unknown | + + + | Marital Status | | + + + | Anabaptist Affiliation | Unknown | + + + | Race | White | + + + | Ethnic Group | Not or | + + + Author + + + | Author | [facility] | + + + | Organization | [facility] | + + + | Address | [address] | | | [place] [address] | + + + | Phone | | + + + Care Team Providers + + + + | Care Rn Admission Name | Role | Phone | + + + + Unavailable | Unavailable | + + + + Unavailable | Unavailable | + + + + Allergies No information. Encounters No information. Functional Status No information. Immunizations No information. Medications + + + + | date | description | facility | + + + + | (no date) | OMEPRAZOLE | [facility] | | | | [facility] | + + + + | (no date) | CEPHALEXIN | [facility] | | | | [facility] | + + + + | 2025-03-23 00:00 | CEPHALEXIN | [facility] | | | | [facility] | + + + + | (no date) | ESCITALOPRAM OXALATE | [facility] | | | | [facility] | + + + + | (no date) | METHYLPREDNISOLONE | [facility] | | | | [facility] | + + + + | (no date) | hydrOXYzine HCL | [facility] | | | | [facility] | + + + + Problems + + + + | date | description | facility | + + + + | 2025-03-23 00:00 | Rectal hemorrhage | [facility] | | | | [facility] | + + + + Procedures [...] 127 | (missing) | (missing) | | [facility] | 17:00:07 | [facility] | [...]
[~2025-05-07 23:50] MED LIST changes: +HYDROXYZINE HCL25 MG PO; +LEXAPRO20 MG PO; +METHYLPREDNISOLO4 M1; +OMEPRAZOLE20 MG PO
[2025-05-08] VITALS (12 sets, daily range): BP systolic 102–133; BP diastolic 64–85
[2025-05-08] MEDS ORDERED: HYDROmorphone HCL 1 MG/ML SYR IV PRN ×3 (00:30→10:15)
[2025-05-08 00:39] LABS: BASOPHILS 1.0 % (0.1-1.2); EOSINOPHILS 2.9 % (0.7-5.8); LYMPHOCYTES 36.9 % (19.3-51.7); MCH 23.5 PG (25.6-32.2); MCHC 30.8 g/dL (32.2-35.5); MCV 76.3 fL (79.4-94.8); MONOCYTES 8.4 % (4.7-12.5); NEUTROPHILS 50.7 % (34.0-71.1); RBC 4.89 M/uL (3.93-5.22)
[2025-05-08 01:11] LABS: ALT (SGPT) 37.0 U/L (14-59); AST (SGOT) 21.0 U/L (15-37); GLOMERULAR FILTRATION RATE,EST 92.0 mL/min (>60); PROTEIN, TOTAL 6.8 g/dL (6.4-8.2); UREA NITROGEN 18.0 mg/dL (7-18)
[2025-05-08] MEDS ORDERED: CEFAZOLIN SODIUM 2 GM in SODIUM CHLORIDE 0.9% 100 ML IV ONE ×2 (02:00→10:00)
[2025-05-08] MEDS ORDERED: FAMOTIDINE 20 MG/ 2 ML VIAL IV ONE (02:15)
[2025-05-08 03:04] LABS: BLOOD/HGB, URINE NEGATIVE (Negative); KETONE, URINE NEGATIVE (Negative); LEUK ESTERASE, URINE NEGATIVE (negative); NITRITE, URINE NEGATIVE (negative)
[2025-05-08] MEDS ORDERED: LACTATED RINGER'S 1,000 ML IV SCH ×2 (03:15→10:15)
--- NOTE | 2025-05-08 03:15 | NUR ---
PT IN FROM ED VIA WHEELCHAIR, REPORT RECEIVED FROM RACHEL JONES. PT ALERT AND ORIENTED, AMBULATORY, VSS, ON RA. IV ACCESS INTACT. IV FLUID STARTED ORDERED. NPO INSTRUCTED TO PT. PT C/O 9/ ABDOMINAL PAIN, PRN PAIN MEDICATION GIVEN ORDERED. DENIES FURTHER NEEDS. ENCOURAGED PT TO CALL IF SHE NEEDS TO USE THE BATHROOM. CALL LIGHT IN REACH.
[2025-05-08] MEDS ORDERED: VENTOLIN HFA18 GM INH (03:22)
[2025-05-08] MEDS ORDERED: CEFAZOLIN SODIUM 2 GM in SODIUM CHLORIDE 0.9% 100 ML IV SCH ×2 (06:00→14:00)
--- NOTE | 2025-05-08 06:00 | NUR ---
WATER QUALITY MANAGER OBTAINED VITALS AND OUTPUT. PT STATES NO NEEDS AT THIS TIME. CALL LIGHT WITHIN REACH.
--- NOTE | 2025-05-08 06:36 | NUR ---
PT RESTING IN BED. RESPIRATIONS EVEN AND UNLABORED. REPORTED ABDOMEN LITHOGRAPH PRESS OPERATOR TINWARE BUT SHE IS STILL OKAY AT THE MOMEN. DENIES NEEDS AT THE MOMENT. CALL LIGHT IN REACH.
--- NOTE | 2025-05-08 07:29 | NUR ---
RECEIVED REPORT FROM RACHEL CRAWFORD. PT SITTING UP IN BED REPORTING NO NEEDS, CALL LIGHT IN REACH, WHITEBOARD UPDATED.
--- NOTE | 2025-05-08 08:45 | NUR ---
PATIENT IS IN BED AT THIS TIME, GAMMA RAY OPERATOR CHARTED VITALS AND I&O'S, GOT FRESH LINENS, GOWN AND WIPE DOWN WIPES. OFFERED PATIENT A WASH CLOTH AND TOOTH BRUSH FOR AM CARE, PATIENT REFUSED. CALL LIGHT WITH IN REACH AND NOTHING ELSE NEEDED AT THIS TIME.
--- NOTE | 2025-05-08 08:47 | NUR ---
IN ROOM ROUNDING ON PATIENT. PATIENT REPORTS 9/10 PAIN, BUT DENIES FURTHER NEEDS. CALL LIGHT AND PERSONAL BELONGINGS ARE WITHIN REACH. ROXANN MARINELLI AT BEDSIDE ASSISTING PATIENT.
--- NOTE | 2025-05-08 09:00 | NUR ---
Spoke with Olya. She states she works at [employer] and resides in her [place] as she is homeless. She has a propane bottle with a burner and is able to cook her own food. She denies financial issues. She has been on the waiting list for section 8 housing for a year. She states there are issues as her son did not pay the rent money and she owes several thousand dollars for rent. Her daughter lives in town. Olya is not able to live with her, but could go home to her house [place] [address] for a couple of days. Pt denies other needs, she [facility] but now works [employer] and is not able to be there for the 5 pm check in. She denies safety of financial concerns. She is waiting on low income housing.
--- NOTE | 2025-05-08 09:02 | NUR ---
PT REPORTING PAIN IN ABDOMEN, DILAUDID GIVEN PER ORDER. STATES NO OTHER NEEDS AT THIS TIME, CASE MANAGEMENT AT BEDSIDE SPEAKING W/PT. CALL LIGHT IN REACH.
[2025-05-08] MEDS ORDERED: KETOROLAC TROMETHAMINE 30 MG/ML VIAL IV PRN (10:15)
[2025-05-08] MEDS ORDERED: FAMOTIDINE 20 MG/ 2 ML VIAL IV SCH (10:15)
--- NOTE | 2025-05-08 10:23 | NUR ---
DR PARK AT BEDSIDE EDUCATING PATIENT ON PROCEDURE. MD STATES TO GIVE THE 1000 DOSE OF ANCEF DUE TO PATIENT GOING LATER TODAY FOR PROCEDURE. MD ALSO WITH VERBAL ORDER FOR PATIENT OKAY TO HAVE "A FEW ICE CHIPS".
[2025-05-08] MEDS ORDERED: IRON325 M1 PO (11:38)
--- NOTE | 2025-05-08 11:39 | NUR ---
MED REC COMPLETE
--- NOTE | 2025-05-08 11:43 | NUR ---
PT IN BATHROOM REQUESTING A WASHCLOTH TO WIPE FACE, GIVEN. NO OTHER NEEDS AT THIS ITME.
--- NOTE | 2025-05-08 12:19 | NUR ---
PATIENT IN CHAIR, GOT HER CHG WIPE DOWN, NEW GOWN AND LINENS, CALL LIGHT WITH IN REACH AND NOTHING ELSE NEEDED AT THIS TIME.
[2025-05-08] MEDS ORDERED: ACETAMINOPHEN 1,000 MG/100 ML VIAL ONE (12:51)
[2025-05-08] MEDS ORDERED: SEVOFLURANE 250 ML BTL ONE (12:51)
[2025-05-08] MEDS ORDERED: LIDOCAINE HCL 2% 5 ML SDV ONE (12:52)
[2025-05-08] MEDS ORDERED: DEXAMETHASONE SOD PHOS 4 MG/ML VIAL ONE (12:52)
[2025-05-08] MEDS ORDERED: SUGAMMADEX SODIUM 200 MG/2 ML ML ONE (12:52)
[2025-05-08] MEDS ORDERED: ROCURONIUM BROMIDE 50 MG/5 ML SYR ONE (12:52)
[2025-05-08] MEDS ORDERED: KETOROLAC TROMETHAMINE 30 MG/ML VIAL ONE (12:52)
[2025-05-08] MEDS ORDERED: SUCCINYLCHOLINE IN 0.9% NACL 200 MG/10 ML SYRINGE ONE (12:52)
[2025-05-08] MEDS ORDERED: fentaNYL citrate 100 MCG/2 ML VIAL ONE (12:53)
[2025-05-08] MEDS ORDERED: MIDAZOLAM HCL 2 MG/2 ML VIAL ONE (12:53)
[2025-05-08] MEDS ORDERED: SEVOFLURANE 250 ML BTL INH ONE (13:00)
--- NOTE | 2025-05-08 13:24 | NUR ---
UR CLINICAL REVIEW: KIKO, MEETS OBS FOR HERNIA REPAIR INCARCERATED UMBILICAL HERNIA, NPO, IV FLUIDS PLAN FOR SURGERY 05/08/25 [facility] OBS 05/08/2025 @ [id number] ORDER MATCHES REG NO AUTH REQUIRED PER MEDICAID RULES DC TO HOME WHEN MEDICALLY READY 05/09/2025
--- NOTE | 2025-05-08 13:58 | NUR ---
05/08/25 Julian8 Jessica Chavez 1349- PT PRESENTS TO PACU, SEMI GUERRERO POSITION, NON REACTIVE TO STIMULUS. OPA IN PLACE, BREATHING EVEN AND NON LABORED, O2 AT 6L PER MASK. LR INFUSING TO LFA IV. ABD SOFT, NON DISTENDED, DRESSING IN PLACE [facility]. ALL MONITORS IN PLACE.
--- NOTE | 2025-05-08 14:03 | HP ---
[facility] [address] [place], [place] [address] Signed ADMISSION DATE: 05/07/2025 REASON FOR ADMISSION: Incarcerated umbilical hernia with omental fat. HISTORY OF PRESENT ILLNESS: This 50-year-old white woman presented to emergency room late last night, was evaluated by Dr. Ritu Carranza with tenderness and a mass in the supraumbilical area. She has had this problem for at least six days. The pain increases with movement. She has had no nausea or vomiting. A CT scan was performed, which confirmed findings of an inflamed and fat and fluid containing supraumbilical hernia with a fascial defect. The defect was stated at 5 mm. I think this is unlikely. It is likely quite larger. There is no sign of bowel loops. She was given intravenous fluids and has been made n.p.o. and pain medication. PAST MEDICAL HISTORY: 1. Notable for . 2. Tubal ligation. 3. Tonsillectomy. 4. She smokes on a daily basis. 5. She has underlying asthma she says. HOME MEDICATIONS: Have recently included: 1. Cephalexin. 2. Doxycycline. 3. Metronidazole. 4. Previously, she has been on steroids. 5. Methylprednisolone. 6. Lexapro. 7. Omeprazole. 8. Hydroxyzine. SOCIAL HISTORY: She lives alone. She has family in town. 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 REVIEW OF SYSTEMS: She denies any nausea or vomiting. She has had no shortness of breath or chest pain. Denies asthma type symptoms at this time. Electronically Signed By: NASIMA PARK MD 05/08/25 1403 PATIENT NAME: CHUNG HUIZAR HISTORY AND PHYSICAL DATE OF : 79 REPORT #: [id number] PHYSICIAN: NASIMA PARK MD PCP: MARYAN ARELLANO NP REPORT IS CONFIDENTIAL AND NOT TO BE RELEASED WITHOUT AUTHORIZATION [facility] [address] [place], [place] [address] Signed PHYSICAL EXAMINATION: GENERAL: Pleasant white woman who does not look systemically toxic. VITAL SIGNS: Weight is 59 kg, height 5 feet 6 inches, BMI is 21. HEENT: Trachea is midline. She has an inspiratory wheeze on the right side. The left side is clear. HEART: Regular. ABDOMEN: Nondistended. There is marked tenderness in the area of the incarcerated supraumbilical hernia. CT scan was reviewed confirming these findings. There is no sign of hollow viscus. EXTREMITIES: Lower extremities show no clubbing, cyanosis, or edema. LABORATORY STUDIES: At presentation showed a white count of 7.23, hematocrit 37.3, platelets 268,000. Chem profile was essentially normal. Glucose was 122, alkaline phosphatase 132, lipase 47. Beta HCG negative. Urinalysis was normal. ASSESSMENT: The patient has an incarcerated supraumbilical hernia, which contains omental fat, most likely. Operative intervention is appropriate to allow for resection or reduction of the fatty herniated viscus with repair of the defect. I doubt strongly that the defect is only 5 mm in size, more likely 1 cm or a 1.5 cm based on my inspection. It could even be larger. Certainly, the herniated viscus is quite a bit larger. The risk of bleeding, infection, recurrence, need for other indicated procedures were reviewed with her. She understands and wished to proceed. PLAN: We will do this at the earliest available time to us today. She will remain n.p.o. and also with IV fluids. A few ice chips might be okay for comfort. MD YA Olivia/MODL /[id number] cc: Ritu Carranza MD Electronically Signed By: NASIMA PARK MD 05/08/25 1403 PATIENT NAME: CHUNG HUIZAR HISTORY AND PHYSICAL DATE OF : 79 REPORT #: [id number] PHYSICIAN: NASIMA PARK MD PCP: MARYAN ARELLANO NP REPORT IS CONFIDENTIAL AND NOT TO BE RELEASED WITHOUT AUTHORIZATION [facility] [address] [facility] [place] [address] Signed Copies: RITU CARRANZA MD ~ Electronically Signed By: NASIMA PARK MD 05/08/25 1403 PATIENT NAME: CHUNG HUIZAR HISTORY AND PHYSICAL DATE OF : 79 REPORT #: [id number] PHYSICIAN: NASIMA PARK MD PCP: MARYAN ARELLANO NP REPORT IS CONFIDENTIAL AND NOT TO BE RELEASED WITHOUT AUTHORIZATION
[2025-05-08] MEDS ORDERED: NICOTINE1 EAC2 TD (14:08)
[2025-05-08] MEDS ORDERED: MOTRIN IB200 MG PO (14:09)
[2025-05-08] MEDS ORDERED: TYLENOL EXTRA500 MG PO (14:09)
[2025-05-08] MEDS ORDERED: HYDROCODON-ACE1 EA10 PO (14:10)
[2025-05-08] MEDS ORDERED: ALBUTEROL SULFATE 0.083% 3 ML VIAL INH PRN (14:15)
[2025-05-08] MEDS ORDERED: NICOTINE 21 MG/24 HR 1 EA TDSY TD SCH (14:15)
[2025-05-08] MEDS ORDERED: ACETAMINOPHEN 500 MG TAB PO PRN (14:30)
[2025-05-08] MEDS ORDERED: HYDROCODONE/ACETA 5/325 TAB PO PRN (14:30)
[2025-05-08] MEDS ORDERED: IBUPROFEN 600 MG TAB PO PRN (14:30)
--- NOTE | 2025-05-08 15:00 | NUR ---
Requested by staff to return to speak with Olya. She is now stating concern to return to her [place]. I asked if she would like me to call the senior living to check for an opening for her. She filled the paperwork a month ago with [facility] so it should still be good. She does not want to return to the senior living. She wants to know if there is a place she can go to stay until she is healing. We discussed [facility] are out of pocket. She is admitted as an OBS pt and would not qualify for a SNF. We again discussed if there is any family she can stay with. She will call her daughter to check if she can stay there tonight and then go home to [place] with her son tomorrow. She will plan on staying up to two weeks with him. He works in [employer] so drives in daily.
--- NOTE | 2025-05-08 15:25 | NUR ---
PTS IV LEAKING, ASSESSED, IV HUB LOOSE, TIGHTENED. NEW WINDOW DRESSING PLACED. NO OTHER NEEDS AT THIS TIME, CALL LIGHT IN REACH.
--- NOTE | 2025-05-08 16:15 | NUR ---
PT AMBULATING AROUND NURSES STATION WITH DENTAL CERAMIST ASSISTANT. NO NEEDS REPORTED.
--- NOTE | 2025-05-08 16:28 | NUR ---
PATIENT WAS IN BED AT THIS TIME, PATIENT CARE SECRETARY ASSISTED PATIENT TO THE RESTROOM, THEN FOR A WALK TWICE AROUND THE NURSES STATION. THEN BACK TO BED, CALL LIGHT WITH IN REACH AND NOTHING ELSE NEEDED AT THIS TIME.
--- NOTE | 2025-05-08 17:36 | NUR ---
Followed up with Olya. She will go to her daughters [place], then home with her son tomorrow. She denies further needs.
--- NOTE | 2025-05-08 18:06 | NUR ---
PT DRESSED IN OWN CLOTHES, DISCHARGE PACKET GIVEN, QUESTIONS ANSWERED. VSS, IV REMOVED, TOLERATED WELL, CATH INTACT. PT AMBULATED TO FRONT OF BUILDING WITH NURSING PERSONEL, ALL BELONGINGS IN HAND.
[2025-05-08] MEDS ORDERED: FAMOTIDINE 20 MG TAB PO SCH (21:00)
--- NOTE | 2025-05-09 18:26 | OR ---
[facility] [address] [place], [place] [address] Signed DATE OF OPERATION: 05/08/2025 SURGEON: Nasima Park MD PREOPERATIVE DIAGNOSIS: Incarcerated supraumbilical hernia with omental fat. POSTOPERATIVE DIAGNOSES: 1. Ischemic or infarcted omental fat. 2. Fascial defect 1.5 cm. PROCEDURES: 1. Resection of portion of ischemic omentum. 2. Repair of incarcerated supraumbilical hernia, 1.5 cm fascial defect. ANESTHESIA: General endotracheal, Luis Antonio Jessee and Marv Gutierrez, ROAD CONTRACTOR and local 10 mL of 0.25% Marcaine with epinephrine. INDICATION: This 50-year-old woman presented to the emergency room late last night, evaluated by Dr. Ritu Carranza with severe pain in the supraumbilical area. A CT scan was performed which showed incarcerated omentum or properitoneal fat with the defect was measured at 0.5 cm. As there was no hollow viscus within the herniated portion and there was fluid associated with this likely represent ischemic or infarcted omentum, but without hollow viscus. She was admitted, given intravenous fluids, parental pain medication and antibiotics and now to undergo repair of incarcerated supraumbilical hernia. The risk of bleeding, infection, recurrence, and other unforeseen complications were reviewed in detail. She understands and wished to proceed. FINDINGS: Indeed, there was incarcerated omentum which appeared ischemic if not infarcted. This tissue was completely excised. There was no evidence of hollow viscus within the hernia in any way. The properitoneal space was identified and the peritoneum reapproximated with 2-0 Vicryl and transverse reapproximation of fascial defect which was mostly 1.5 cm complex with interrupted 0 Prolene in a vertical rather horizontal mattress configuration. There were no complications. DESCRIPTION OF PROCEDURE: The patient was brought to the operating room, given a general endotracheal anesthetic. Electronically Signed By: NASIMA PARK MD 05/09/25 1826 PATIENT NAME: CHUNG HUIZAR OPERATIVE REPORT DATE OF : 79 REPORT #: [id number] PHYSICIAN: NASIMA PARK MD PCP: MARYAN ARELLANO NP REPORT IS CONFIDENTIAL AND NOT TO BE RELEASED WITHOUT AUTHORIZATION [facility] [address] [place], [place] [address] Signed Preoperative antibiotic Ancef had been given. Sequential compression device stockings were used. The abdomen was prepared with chlorhexidine solution and draped sterilely. The palpable lesion was not reducible even with relaxation of anesthesia. The defect was a few cm above the umbilical area itself. A vertical incision was made directly over it in the midline. Dissection carried through the subcutaneous tissue where edema and so forth was noted in the subcutaneous tissue. The hernia sac was quite inflamed and one could see dark fluid within the sac. The tissue was freed from the surrounding fascial edge and the fascia incised inferiorly to allow for elevation of the herniated contents which proved to be ischemic if not infarcted omentum. This portion was excised with electrocautery. The remaining viable omentum was secured with electrocautery. The properitoneal space was allowing for closure of the peritoneum, the former neck of the hernia sac. Fascial edges were then reapproximated transversely with interrupted 0 Prolene suture in a horizontal mattress configuration. Mesh was not deemed advisable given the small defect size itself. Irrigation was undertaken and 10 mL of 0.25% Marcaine with epinephrine was injected locally. Subcutaneous tissue was reapproximated with interrupted 2-0 Vicryl and skin closed with running subcuticular 3-0 Vicryl. Steri-Strips were applied. Acticoat dressing was then applied. The patient was then taken to recovery room after extubation in good condition. Blood loss was minimal. Complications none. MD YA Olivia/MODL /[id number] cc: KAL Cardona MD Copies: RITU CARRANZA MD ~ Electronically Signed By: NASIMA PARK MD 05/09/25 1826 PATIENT NAME: CHUNG HUIZAR OPERATIVE REPORT DATE OF : 79 REPORT #: [id number] PHYSICIAN: NASIMA PARK MD PCP: MARYAN ARELLANO NP REPORT IS CONFIDENTIAL AND NOT TO BE RELEASED WITHOUT AUTHORIZATION
--- NOTE | 2025-05-13 11:56 | PATH ---
[facility] [address] [facility] [place], [place] [address] Signed SPECIMEN(S): A PORTION OMENTUM SPECIMEN SOURCE: A. PORTION OMENTUM CLINICAL HISTORY: Incarcerated periumbilical hernia. FINAL PATHOLOGIC DIAGNOSIS: Portion of omentum: - [place] adipose and vascular tissue with focal chronic inflammation, fibrosis and reactive serosal features. - Negative for atypical features. [facility] MICROSCOPIC EXAMINATION: Histologic sections of all submitted blocks are examined by light microscopy. These findings, together with the gross examination, support the pathologic diagnosis. GROSS DESCRIPTION: The specimen, labeled and designated "Javier Valle, " and designated on the requisition "portion of omentum," is received in formalin and consists of 12 g unoriented portion of yellow-castaneda fibroadipose tissue that is 4.2 x 3.8 x 1.8 cm. Specimen is partially surfaced by pale pink transparent membranous tissue. The specimen is inked and sectioned revealing membranous to saclike structure that is three 4.0 cm in greatest dimension and has a white smooth inner lining. Music Specialist sections are submitted in (A1). FB (under the direct supervision of a pathologist) The Gross Description was prepared using a voice recognition system. The report was reviewed for accuracy; however, sound-alike word errors, addition and/or deletions may occur. If there is any question about this report, please contact Client Services. ADDITIONAL NOTES: Immunohistochemical and/or in situ hybridization studies if performed in this case included appropriate positive controls that reacted as expected. This test was developed and its performance characteristics determined by [facility]. It has not been cleared or approved by the U.S. Food and Drug Administration. The FDA has determined that PATIENT NAME: CHUNG VALLE PATHOLOGY DATE OF : 79 REPORT #: [id number] PHYSICIAN: [facility] PCP: MARYAN ARELLANO NP REPORT IS CONFIDENTIAL AND NOT TO BE RELEASED WITHOUT AUTHORIZATION [facility] [address] [place], [place] [address] Signed such clearance or approval is not necessary. This test is used for clinical purposes. It should not be regarded as investigational or for research. [facility] is certified under the Clinical Laboratory Improvement Amendments of 1988 (CLIA) as qualified to perform high complexity clinical laboratory testing. PERFORMING LABORATORY: Technical component was performed by [facility], [address] [place] [id number] (CLIA# [id number]). Professional interpretation was performed by [facility] - [place] - [address] [address] (CLIA#: [id number]). Diagnostician: Yassine Maya MD Pathologist Electronically Signed 05/13/2025 Copies: ~ PATIENT NAME: CHUNG VALLE PATHOLOGY DATE OF : 79 REPORT #: [id number] PHYSICIAN: [facility] PATHOLOG[facility] PCP: MARYAN ARELLANO NP REPORT IS CONFIDENTIAL AND NOT TO BE RELEASED WITHOUT AUTHORIZATION
== END 2025-05-08 18:06 | disposition home or self-care (01) ==
LOC: ED 23:50 → MS 23:52
PROVIDERS: Emergency Medicine; ADMIT Surgery; ATTEND Surgery
PROC: 0WQF0ZZ Repair Abdominal Wall, Open Approach (ICD-10-PCS; principal; 2025-05-08 11:45)
DX: K43.6 Other and unspecified ventral hernia with obstruction, without gangrene (principal); K55.069 Acute infarction of intestine, part and extent unspecified; F17.200 Nicotine dependence, unspecified, uncomplicated; Z88.5 Allergy status to narcotic agent; Z88.6 Allergy status to analgesic agent; Z79.899 Other long term (current) drug therapy
CPT/HCPCS: 00750; 36415; 74177; 80053; 81003; 83690; 84703; 85025; 88305; 94762; 96365; 96375; 96376; 99285-25; G0378; J0131; J0330; J0688; J1100; J1171; J1885; J2003; J2250; J2405; J2704; J3010; J3490; J7121; Q9967